=== PATIENT | male | born 1955 | race Caucasian/White ===

== ENCOUNTER 2022-04-23 05:45 | Emergency (ER) | payer OTHER, SELFPAY ==
[2022-04-23 05:46] VITALS: BP 171/116; PULSE 101; RESP 17; TEMP 37.1; O2SAT 95; BMI 28.1
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
[2022-04-23] MEDS: HYDROcodone-acetaminophen 7.5-325 mg Tablet 1 TAB PO (05:57)
[2022-04-23 06:38] VITALS: BP 183/111; PULSE 102; RESP 20; O2SAT 95
== END 2022-04-23 06:39 | disposition home or self-care (01) ==
PROVIDERS: Emergency Provider Emergency Medicine
DX: S39.012A Strain of muscle, fascia and tendon of lower back, initial encounter (principal); V89.2XXA Person injured in unspecified motor-vehicle accident, traffic, initial encounter; Y92.410 Unspecified street and highway as the place of occurrence of the external cause; M25.512 Pain in left shoulder; M25.552 Pain in left hip
CPT/HCPCS: 72100; 73030; 73502; 99284